=== PATIENT | female | born 1950 | race Two or more races ===

== ENCOUNTER 2017-07-01 14:40 | Emergency (ER) | payer MEDICARE, MEDICAID ==
--- NOTE | 2017-07-01 15:30 | RAD ---
Indication: Chest pain. Single frontal view of the chest performed at 1515 hours was reviewed. Comparison is made with previous exam dated February 19, 2016. No mediastinal shift is noted. Heart is of normal size and configuration. Lung martell appear clear. IMPRESSION: NO ACTIVE CARDIOPULMONARY DISEASE IS NOTED.
[2017-07-01 16:45] LABS: ABS Basophils 0 10^3/ul (0-0.2); ABS Eosinophils 0.1 10^3/ul (0-0.6); ABS Lymphocytes 2.6 10^3/ul (1.0-4.8); ABS Monocytes 0.5 10^3/ul (0-0.8); ABS Neutrophils 3.2 10^3/ul (1.5-7.7); ABS Nucleated RBC 0 10^3/ul; Eosinophil % 1.1 % (0-6); Hematocrit 41 % (35-47); Hemoglobin 13.8 g/dl (12.0-16.0); Lymphocyte % 40.9 % (25-47); Mean Corpuscular HGB Conc 34 g/dl (31-36); Mean Corpuscular Hemoglobin 29 pg (27-31); Mean Corpuscular Volume 86 fL (80-97); Nucleated Red Blood Cells % 0; Platelet Count 222 10^3/ul (150-450); Red Cell Distribution Width 15 % (10.5-15); White Blood Count 6.4 10^3/ul (3.5-10.8)
[2017-07-01 16:53] LABS: INR 0.94 (0.77-1.02)
[2017-07-01 17:04] LABS: EGFR Non-African American 73.7 (>60)
[2017-07-01] MEDS ORDERED: Iohexol 350* (CONTRAST) 500 ML MDV IV ONE (17:22)
--- NOTE | 2017-07-01 18:10 | RAD ---
INDICATION: Chest pain. COMPARISON: Comparison is made with a prior chest x-ray study from July 01, 2017. TECHNIQUE: A CT angiogram of the chest was performed with intravenous following intravenous injection of 84 ml of Omnipaque 350 nonionic contrast. Contiguous axial sections were obtained from the lung apices through the lung bases. Images were reconstructed in the coronal and sagittal planes. The exam is limited due to slight motion artifact and the patient's body habitus. FINDINGS: There is relatively homogeneous opacification of the pulmonary arteries. No intraluminal filling defect or pulmonary embolism is seen. The heart is within normal limits in size. No pericardial effusion is present. The thoracic aorta is normal in caliber and demonstrates homogeneous contrast opacification. No significant enlarged mediastinal or hilar lymph nodes are seen. There is a small hiatal hernia. There is a 6 mm nodular density present in the right lower lobe best visualized on axial image #24 the lungs are otherwise clear. No pleural effusion or pneumothorax is seen. No significant focal osseous abnormality is seen. IMPRESSION: 1. LIMITED EXAM, NO EVIDENCE FOR PULMONARY EMBOLISM. 2. 6 MM RIGHT LOWER LOBE PULMONARY NODULE, RECOMMEND A FOLLOW-UP CT OF THE CHEST IN 6 MONTHS TIME. 3. SMALL HIATAL HERNIA.
[2017-07-01 19:10] VITALS: BP 119/72
--- NOTE | 2017-07-01 21:13 | ED ---
Betsy Greer Gabriel, scribed for Wyatt Chavez MD on 07/01/17 at 1543 . Shortness of Breath - HPI Summary HPI Summary: This patient is a 66 year old F presenting to [facility] accompanied by her family with a chief complaint of SOB that began 2 days ago. The patient rates the pain 7/10 in severity. Patient reports back pain, cough, rib pain, and LE edema. Two weeks ago patient just returned from [place] trip. She also c/o of left shoulder pain that she believes developed due to her using her left hand more which she has needed to do due to a right hand injury. - History of Current Complaint Chief Complaint: EDShortnessOfBreath Time Seen by Provider: 07/01/17 14:52 Hx Obtained From: Patient Onset/Duration: Lasting Days - 2, Still Present Timing: Constant Current Severity: Mild Associated Signs & Symptoms: Cough (Nonproductive), Edema - Allergy/Home Medications Allergies/Adverse Reactions: Allergies Allergy/AdvReac Type Severity Reaction Status Date / Time Adhesive Tape Allergy REDDENED, Verified 02/25/16 06:42 SKIN IRRITATION MS Latex [Latex] Allergy BURNING Verified 02/25/16 06:42 Home Medications: Home Medications Cholecalciferol TAB* [Vitamin D TAB*] 1,000 unit PO DAILY 07/01/17 [History Confirmed 07/01/17] Flaxseed Oil [Flaxseed Oil] 1,000 mg PO DAILY 07/01/17 [History Confirmed ] Ibuprofen TAB* [Motrin TAB* 600 MG] 600 mg PO Q6H PRN 07/01/17 [History Confirmed 07/01/17] Iron [Iron] 90 mg PO DAILY 07/01/17 [History Confirmed 07/01/17] Multivitamins/Minerals TAB* [Theragran/minerals TAB*] 1 tab PO DAILY 07/01/17 [ History Confirmed 07/01/17] [place]yers-3 Fatty Acids (Nf) [Fish Oil (NF)] 1,000 mg PO DAILY 07/01/17 [History Confirmed 07/01/17] Vitamin B Complex CAP* [B Complex CAP*] 1 cap PO DAILY 07/01/17 [History Confirmed 07/01/17] PMH/Surg Hx/FS Hx/Imm Hx Endocrine/Hematology History: Denies: Hx Diabetes Cardiovascular History: Denies: Hx Hypertension, Hx Pacemaker/ICD Respiratory History: Denies: Hx Chronic Obstructive Pulmonary Disease (COPD) History: Denies: Hx Renal Disease Musculoskeletal History: Reports: Hx Arthritis - KNEES, Hx Tendonitis - RIGHT FOOT, Other Musculoskeletal History - LEFT KNEE/ SWELLING TO BOTH FEET LEFT GREATER THAN RIGHT Sensory History: Reports: Hx Cataracts, Hx Contacts or Glasses - GLASSES Denies: Hx Hearing Aid Opthamlomology History: Reports: Hx Cataracts, Hx Contacts or Glasses - GLASSES Psychiatric History: Denies: Hx Panic Disorder - Cancer History Cancer Type, 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 SURGERY 11-21. 12/2014 - LT KNEE REPLACEMENT Hx Anesthesia Reactions: No Infectious Disease History: No Infectious Disease History: Reports: Traveled Outside the [place] in Last 30 Days - Family History Known Family History: Positive: Hypertension - Social History Lives: With Family Alcohol Use: None Substance Use Type: Reports: None Smoking Status (MU): Never Smoked Tobacco Have You Smoked in the Last Year: No Review of Systems Positive: Shortness Of Breath Positive: Edema, Other - back pain, rib pain, and left shoulder pain All Other Systems Reviewed And Are Negative: Yes Physical Exam - Summary Physical Exam Summary: Appearance: The patient is well-nourished in no acute distress and in no acute pain. Skin: The skin is warm and dry and skin color reflects adequate perfusion. HEENT: The head is normocephalic and atraumatic. The pupils are equal and reactive. The conjunctivae are clear and without drainage. Nares are patent and without drainage. Mouth reveals moist mucous membranes and the throat is without erythema and exudate. The external ears are intact. The ear canals are patent and without drainage. The tympanic membranes are intact. Neck: the neck is supple with full range of motion and non-tender. There are no carotid bruits. There is no neck vein distension. Respiratory: Chest is non-tender. Diminshed breath sounds Cardiovascular: Heart is regular rate and rhythm. There is no murmur or rub auscultated. There is slight peripheral edema and pulses are symmetrical and equal. Abdomen: The abdomen is soft and non-tender. There are normal bowel sounds heard in all four quadrants and there is no organomegaly palpated. Musculoskeletal: There is no back tenderness noted. Extremities are non-tender with full range of motion. There is good capillary refill. There is slight peripheral edema no calf tenderness Neurological: Patient is alert and oriented to person, place and time. The patient has symmetrical motor strength in all four extremities. Cranial nerves are grossly intact. Deep tendon reflexes are symmetrical and equal in all four extremities. Psychiatric: The patient has an appropriate affect and does not exhibit any anxiety or depression. Triage Information Reviewed: Yes Vital Signs On Initial Exam: Initial Vitals Temp Pulse Resp BP Pulse Ox 97.2 F 72 20 125/76 97 07/01/17 14:43 07/01/17 14:43 07/01/17 14:43 07/01/17 14:43 07/01/17 14:43 Vital Signs Reviewed: Yes Diagnostics - Vital Signs Vital Signs Temp Pulse Resp BP Pulse Ox 07/01/17 14:43 97.2 F 72 20 125/76 97 - Laboratory Lab Results: Lab Results 07/01/17 07/01/17 07/01/17 Range/Units 16:30 16:30 16:30 WBC 6.4 (3.5-10.8) 10^3/ul RBC 4.80 (4.0-5.4) 10^6/ul Hgb 13.8 (12.0-16.0) g/dl Hct 41 (35-47) % MCV 86 (80-97) fL MCH 29 (27-31) pg MCHC 34 (31-36) g/dl RDW 15 (10.5-15) % Plt Count 222 (150-450) 10^3/ul MPV 8.0 (7.4-10.4) um3 Neut % (Auto) 49.8 (38-83) % Lymph % (Auto) 40.9 (25-47) % [place] % (Auto) 7.6 H (0-7) % Eos % (Auto) 1.1 (0-6) % Baso % (Auto) 0.6 (0-2) % Absolute Neuts (auto) 3.2 (1.5-7.7) 10^3/ul Absolute Lymphs (auto) 2.6 (1.0-4.8) 10^3/ul Absolute Monos (auto) 0.5 (0-0.8) 10^3/ul Absolute Eos (auto) 0.1 (0-0.6) 10^3/ul Absolute Basos (auto) 0 (0-0.2) 10^3/ul Absolute Nucleated RBC 0 10^3/ul Nucleated RBC % 0 INR (Anticoag Therapy) (0.77-1.02) D-Dimer, Quantitative (Less Than 230) ng/mL Sodium 136 L (139-145) mmol/L Potassium 4.4 (3.5-5.0) mmol/L Chloride 102 (101-111) mmol/L Carbon Dioxide 29 (22-32) mmol/L Anion Gap 5 (2-11) mmol/L BUN 17 (6-24) mg/dL Creatinine 0.78 (0.51-0.95) mg/dL Est GFR ( Amer) 94.7 (>60) Est GFR (Non-Af Amer) 73.7 (>60) BUN/Creatinine Ratio 21.8 H (8-20) Glucose 100 (70-100) mg/dL Lactic Acid (0.5-2.0) mmol/L Calcium 10.3 (8.6-10.3) mg/dL Total Bilirubin 0.40 (0.2-1.0) mg/dL AST 16 (13-39) U/L ALT 19 (7-52) U/L Alkaline Phosphatase 70 (34-104) U/L Troponin I 0.00 (<0.04) ng/mL B-Natriuretic Peptide 23 ( - 100) pg/mL Total Protein 6.5 (6.4-8.9) g/dL Albumin 3.6 (3.2-5.2) g/dL Globulin 2.9 (2-4) g/dL Albumin/Globulin Ratio 1.2 (1-3) 07/01/17 07/01/17 07/01/17 Range/Units 16:30 16:30 18:03 WBC (3.5-10.8) 10^3/ul RBC (4.0-5.4) 10^6/ul Hgb (12.0-16.0) g/dl Hct (35-47) % MCV (80-97) fL MCH (27-31) pg MCHC (31-36) g/dl RDW (10.5-15) % Plt Count (150-450) 10^3/ul MPV (7.4-10.4) um3 Neut % (Auto) (38-83) % Lymph % (Auto) (25-47) % [place] % (Auto) (0-7) % Eos % (Auto) (0-6) % Baso % (Auto) (0-2) % Absolute Neuts (auto) (1.5-7.7) 10^3/ul Absolute Lymphs (auto) (1.0-4.8) 10^3/ul Absolute Monos (auto) (0-0.8) 10^3/ul Absolute Eos (auto) (0-0.6) 10^3/ul Absolute Basos (auto) (0-0.2) 10^3/ul Absolute Nucleated RBC 10^3/ul Nucleated RBC % INR (Anticoag Therapy) 0.94 (0.77-1.02) D-Dimer, Quantitative 333 H (Less Than 230) ng/mL Sodium (139-145) mmol/L Potassium (3.5-5.0) mmol/L Chloride (101-111) mmol/L Carbon Dioxide (22-32) mmol/L Anion Gap (2-11) mmol/L BUN (6-24) mg/dL Creatinine (0.51-0.95) mg/dL Est GFR ( Amer) (>60) Est GFR (Non-Af Amer) (>60) BUN/Creatinine Ratio (8-20) Glucose (70-100) mg/dL Lactic Acid 0.8 (0.5-2.0) mmol/L Calcium (8.6-10.3) mg/dL Total Bilirubin (0.2-1.0) mg/dL AST (13-39) U/L ALT (7-52) U/L Alkaline Phosphatase (34-104) U/L Troponin I 0.00 (<0.04) ng/mL B-Natriuretic Peptide ( - 100) pg/mL Total Protein (6.4-8.9) g/dL Albumin (3.2-5.2) g/dL Globulin (2-4) g/dL Albumin/Globulin Ratio (1-3) Result Diagrams: 07/01/17 16:30 07/01/17 16:30 Lab Statement: Any lab studies that have been ordered have been reviewed, and results considered in the medical decision making process. - Radiology CXR Radiology Interpretation Completed By: Radiologist - no active cardiopulmonary disease is noted ED physician has reviewed this radiology report. - CT CTA Chest CT Interpretation Completed By: Radiologist - 1. LIMITED EXAM, NO EVIDENCE FOR PULMONARY EMBOLISM. 2. 6 MM RIGHT LOWER LOBE PULMONARY NODULE, RECOMMEND A FOLLOW-UP CT OF THE CHEST IN 6 MONTHS TIME. 3. SMALL HIATAL HERNIA. Dr. Chavez has reviewed this report - EKG 14:43 Cardiac Rate: NL EKG Rhythm: Sinus Rhythm - at 63 BPM EKG Interpretation: no acute ST/T wave changes Course/Dx - Course Course Of Treatment: Ms. Swift presented with a nonproductive cough for a couple days with increasing left chest pain especially with deep breath or cough. She has travelled recently. He exam was unremarkable. She R/O for PE after a CTA was negative and for IA after two troponins. - Diagnoses Provider Diagnoses: Chest pain Discharge - Sign-Out/Discharge Documenting (check all that apply): Discharge - Discharge Plan Condition: Stable Disposition: HOME Prescriptions: traMADol TAB* [Ultram*] 50 mg PO Q6HR PRN #20 tab MDD 4 PRN Reason: Pain Patient Education Materials: Chest Pain (ED) Referrals: Raine De Leon MD [Medical Doctor] - 2 Days Additional Instructions: RETURN TO THE EMERGENCY DEPARTMENT FOR CHANGING OR WORSENING SYMPTOMS - Billing Disposition and Condition Condition: STABLE Disposition: HOME The documentation as recorded by the Betsy stanley Gabriel accurately reflects the service I personally performed and the decisions made by Scott monk Richard L, MD.
== END 2017-07-01 19:09 | disposition home or self-care (01) ==
LOC: ED 14:40
DX: R07.89 Other chest pain (principal); R05 Cough; R60.9 Edema, unspecified; R91.1 Solitary pulmonary nodule; K44.9 Diaphragmatic hernia without obstruction or gangrene; M25.512 Pain in left shoulder; Z86.011 Personal history of benign neoplasm of the brain; Z91.040 Latex allergy status; Z91.048 Other nonmedicinal substance allergy status; Z96.652 Presence of left artificial knee joint
CPT/HCPCS: 36415; 71045; 71275; 80053; 83605; 83880; 84484; 85025; 85379; 85610; 93005; 99284; Q9967

== ENCOUNTER 2018-10-07 15:33 | Emergency (ER) | payer MEDICARE, MEDICAID ==
[2018-10-07 15:51] VITALS: BP 125/74
--- NOTE | 2018-10-07 16:24 | UC ---
Lower Extremity/Ankle HPI - HPI Summary HPI Summary: 68-year-old female who complained of sharp right calf pain the past 2 nights. She's had no recent surgery, she does not take estrogen, she is a nonsmoker, she said a couple months ago she did have an air flight approximately 11 hours she was in the air however she's had no difficulty until the past few days when she did a little more excessive walking been normal and then had the sharp pain in her right Past 2 nights. She denies any chest pain or difficulty breathing. - History of Current Complaint Chief Complaint: UCLowerExtremity Stated Complaint: LEG PAIN Time Seen by Provider: 10/07/18 16:07 Hx Obtained From: Patient ?: No Onset/Duration: Gradual Onset Severity Initially: Mild Severity Currently: None Pain Intensity: 2 Aggravating Factor(s): Other - She has a sharp pain mostly at night in her right calf. Alleviating Factor(s): Rest Able to Bear Weight: Yes - Allergies/Home Medications Allergies/Adverse Reactions: Allergies Allergy/AdvReac Type Severity Reaction Status Date / Time Adhesive Tape Allergy REDDENED, Verified 10/07/18 15:51 SKIN IRRITATION latex Allergy burning Verified 10/07/18 15:51 Home Medications: Home Medications Aspirin 325 mg PO DAILY 10/07/18 [History Confirmed 10/07/18] PMH/Surg Hx/FS Hx/Imm Hx Previously Healthy: Yes Cancer History: Other - Meningioma in 2007. - Surgical History Surgical History: Yes Surgery Procedure, Year, and Place: C-SECTIONS X4,HERNIA X3, LT KNEE ARTHROSCOPY ,RT CARPAL TUNNEL 12/15,LASIK 1999(?), CRANIOTOMY 11/20 FOR MENINGIOMA RESECTION - [facility], [facility] SURGERY 12/2014 - LT KNEE REPLACEMENT - Family History Known Family History: Positive: Hypertension - Social History Alcohol Use: None Substance Use Type: None Smoking Status (MU): Never Smoked Tobacco Have You Smoked in the Last Year: No - Immunization History Most Recent Influenza Vaccination: 2014 Most Recent Tetanus Shot: UNKNOWN Most Recent Pneumonia Vaccination: HAS NOT HAD Review of Systems All Other Systems Reviewed And Are Negative: Yes Motor: Positive: Negative Neurovascular: Positive: Negative Musculoskeletal: Positive: Negative, Calf Tenderness - Sharp pain right calf the past 2 nights. Presently she is pain-free. Is Patient Immunocompromised?: No Physical Exam Triage Information Reviewed: Yes Appearance: Well-Appearing, No Pain Distress, Well-Nourished Vital Signs: Initial Vital Signs Temp 98 F 10/07/18 15:44 Pulse 63 10/07/18 15:44 Resp 12 10/07/18 15:44 BP 125/74 10/07/18 15:44 Pulse Ox 97 10/07/18 15:44 Vital Signs Reviewed: Yes Musculoskeletal: Positive: Strength Intact, ROM Intact, No Edema, Other: - Good peripheral pulses neuro sensation and capillary refill. Skin is the same temperature compared to the other leg. Right calf is nontender presently. No swelling or bruising or erythema noted. Neurological: Positive: Alert, Muscle Tone Normal Psychological Exam: Normal Skin Exam: Normal Lower Extremity Course/Dx - Course Course Of Treatment: Venous Doppler right leg:negative for DVT. I believe this is more of a muscle strain associated with excessive walking that she did in shoes that were new and uncomfortable for her. She can apply heat to the sore area, warm moist compresses, take Motrin every 8 hours with pain and follow-up with her primary care provider if no improvement in 3 or 4 days. - Differential Dx/Diagnosis Provider Diagnosis: Pain in right lower leg Discharge - Sign-Out/Discharge Documenting (check all that apply): Patient Departure All imaging exams completed and their final reports reviewed: Yes - Discharge Plan Condition: Fair Disposition: HOME Patient Education Materials: Muscle Strain (DC) Referrals: Cherise Swartz MD [Primary Care Provider] - Additional Instructions: You may apply heat to the sore area. Avoid movements that cause pain. Follow- up with your primary care provider if no improvement in 3 or 4 days. You may take Motrin every 8 hours with food for pain. - Billing Disposition and Condition Condition: FAIR Disposition: Home - Attestation Statements Provider Attestation: Per institutional requirements, I have reviewed the chart, however, I was not consulted specifically or made aware of this patient by the midlevel provider. I did not personally evaluate, interact with , or disposition this patient.
== END 2018-10-07 17:45 | disposition home or self-care (01) ==
LOC: UCEAST 15:33
DX: M79.661 Pain in right lower leg (principal); Z91.040 Latex allergy status; Z79.82 Long term (current) use of aspirin
CPT/HCPCS: 99211; G0463

== ENCOUNTER 2019-01-06 13:46 | Emergency (ER) | payer MEDICARE, MEDICAID ==
--- OUTSIDE RECORDS SUMMARY | 2019-01-06 13:55 | XMS REPORT | Summary of Care ---
:1950 Author Organization [facility] Address [address] [address] Care Team Providers Name Role Phone Cherise Swartz Primary Care Provider Reason for Referral Refer to Department Only (Routine) Status Reason Specialty Diagnoses / Referred By Referred To Procedures Contact Contact Pending Review Physical Therapy Diagnoses Nocturia Cherise Swartz MD [address] [place] [address] Reason for Visit Reason Comments Physical pap 01/15/17, mammo 10/11/18, Dexa 12/11/15, Colonoscopy 08/02/18 Sleep Problem waking up throughout the night Back Pain mid back pain at night only Encounter Details Date Type Department Care Team Description 12/28/2018 Office Visit [facility] Cherise Swartz, Pulmonary nodule, right (Primary Dx); Medicine MD [place]; [address] [place] [address] Primary hyperparathyroidism (HCC); [place], [place] [id number] [place] [address] Elevated blood sugar; [phone] [address] Nocturia [phone] Allergies Active Allergy Reactions Severity Noted Date Comments Tegaderm Hives 01/28/2016 documented as of this encounter (statuses as of 12/28/2018) Medications Medication Sig Dispensed Refills Start Date End Date Status Multiple Vitamin Take by mouth 0 Active (MULTI-VITAMINS PO) DAILY. New Point-3 Fatty Acids Take by mouth 0 Active (FISH OIL PO) DAILY. COMBIGAN 0.2-0.5 % 0 04/28/2016 Active Ophthalmic Solution Diphenhydramine-APAP, Take by mouth 0 Active sleep, (TYLENOL PM EVERY BEDTIME. EXTRA STRENGTH) 25-500 MG Oral Tab ibuprofen (MOTRIN) 600 Take 1 Tab by 100 Tab 1 02/26/2017 Active MG Oral Tab mouth EVERY SIX HOURS NEEDED for Pain. documented as of this encounter (statuses as of 12/28/2018) Active Problems Problem Noted Date Hyperplastic polyp of descending colon 07/07/2018 Adenomatous polyp of descending colon 07/07/2018 Primary hyperparathyroidism 06/10/2018 Visit for screening mammogram 06/10/2018 Acute narcotic withdrawal 08/28/2017 Pulmonary nodule, right 07/07/2017 Overview: 6mm- lung nodule - 06/30 - Repeat in 6 months- 12/01 - no change repeat in 2 years suggested- ( 2020) Restless leg syndrome 03/12/2015 Status post total left knee replacement 02/20/2015 Primary osteoarthritis of both knees 11/12/2014 DJD (degenerative joint disease) of knee 07/05/2014 Meningioma 07/25/2013 Overview: resected and treated at [facility] 2007 BMI 40.0-44.9, adult 09/23/2011 Overview: sustained wt reduction with portion control and sustained routine exercise. Set realistic goal of 1# wt reduction /week set 10 week goals. Herniated nucleus pulposus, L4-5 left 11/26/2008 documented as of this encounter (statuses as of 12/28/2018) Resolved Problems Problem Noted Date Resolved Date History of total left knee replacement 04/23/2015 08/27/2017 Primary osteoarthritis of left knee 12/31/2014 08/27/2017 Knee pain, bilateral 06/18/2014 08/27/2017 Osteoarthritis of Knee 09/14/2007 08/27/2017 documented as of this encounter (statuses as of 12/28/2018) Immunizations Name Administration Dates Next Due Depo Medrol (40mg) 11/15/2013 Depo Medrol (80mg) 07/02/2015 Euflexxa (2ml) 06/27/2014 Euflexxa (4ml) 07/10/2014, 07/05/2014 Hepatitis A Vaccine-Adult 05/28/2010 Influenza (IM) Preservative Free 01/05/2014, 01/22/2010, 12/17/2008, 12/26/2007 Influenza Vaccine High Dose 11/19/2015 MENINGOCOCCAL CONJUGATE VACCINE 06/20/2009 PNEUMOCOCCAL POLYSACCHARIDE VACCINE 02/04/2018 Pneumococcal Conjugate(13 Valent) 12/11/2015 documented as of this encounter Social History Tobacco Use Types Packs/Day Years Used Date Never Smoker Smokeless Tobacco: Never Used Alcohol Use Drinks/Week oz/Week Comments No Sex Assigned at Date Recorded Not on file Job Start Date Occupation Industry Not on file Not on file Not on file Travel History Travel Start Travel End No recent travel history available. documented as of this encounter Last Filed Vital Signs Vital Sign Reading Time Taken Comments Blood Pressure 124/70 12/28/2018 2:40 PM EDT Pulse 59 12/28/2018 2:40 PM EDT Temperature - - Respiratory Rate - - Oxygen Saturation 97% 12/28/2018 2:40 PM EDT Inhaled Oxygen Concentration - - Weight 110.1 kg (242 lb 12.8 oz) 12/28/2018 2:40 PM EDT Height 162.6 cm (5' 4") 12/28/2018 2:40 PM EDT Body Mass Index 41.68 12/28/2018 2:40 PM EDT documented in this encounter Patient Instructions Patient InstructionsCreCherise kearney MD - 12/28/2018 2:40 PM EDTPLAN dont Drink before bed- documented in this encounter Progress Notes Cherise Swartz MD - 12/28/2018 2:40 PM EDT NAME:Judi Swift 1950: 1950 [place] Date: 12/28/2018 CC: Chief Complaint Patient presents with Physical pap 01/15/17, mammo 10/11/18, Dexa 12/11/15, Colonoscopy 08/02/18 Sleep Problem waking up throughout the night Back Pain mid back pain at night only Judi Swift is a 68-y.o. female about to go to [place] to be with her daughter ( professor at [employer])who is about to have a back to baby. 1. Repeat ct scan for 6 mm lung nodule - no change - repeat in 2 years suggested - 2. Urinary frequency - Gets up every 1-2 hours - gets up because has to go to the bathroom - and does not fall asleep again- trial Of oxybutynin - After 3 days stopped - Discussed options- Since travelling decided that referral to Physical Therapy most useful at this time - 3. Review of blood work- Blood sugar is borderline - Cholesterol is ok 4. Primary hyperparathyroid - Serum calcium still mildly eleated Urine calcium low as time checked Plan to check again and consider repeat dxa Current Outpatient Medications Medication Sig COMBIGAN 0.2-0.5 % Ophthalmic Solution Diphenhydramine-APAP, sleep, (TYLENOL PM EXTRA STRENGTH) 25-500 MG Oral Tab Take by mouth EVERY BEDTIME. ibuprofen (MOTRIN) 600 MG Oral Tab Take 1 Tab by mouth EVERY SIX HOURS NEEDED for Pain. Multiple Vitamin (MULTI-VITAMINS PO) Take by mouth DAILY. New Point-3 Fatty Acids (FISH OIL PO) Take by mouth DAILY. No current facility-administered medications for this visit. Patient Active Problem List Diagnosis Date Noted Hyperplastic polyp of descending colon 07/07/2018 Adenomatous polyp of descending colon 07/07/2018 Primary hyperparathyroidism (HCC) 06/10/2018 Visit for screening mammogram 06/10/2018 Acute narcotic withdrawal (HCC) 08/28/2017 Pulmonary nodule, right 07/07/2017 6mm- lung nodule - 06/30 - Repeat in 6 months- 12/01 - no change repeat in 2 years suggested- (2020) Restless leg syndrome 03/12/2015 Status post total left knee replacement 02/20/2015 Primary osteoarthritis of both knees 11/12/2014 DJD (degenerative joint disease) of knee 07/05/2014 Meningioma ([facility]) 07/25/2013 resected and treated at [facility] 2008 BMI 40.0-44.9, adult ([facility]) 09/23/2011 sustained wt reduction with portion control and sustained routine exercise. Set realistic goal of 1# wt reduction /week set 10 week goals. Herniated nucleus pulposus, L4-5 left 11/26/2008 Family History Problem Relation Age of Onset Diabetes Mother Hypertension Mother Breast Cancer Other No cardiopulmonary symptoms No upper or lower GI complaints No urinary tract symptoms. No bruising/ bleeding. No neurological complaints . No insomnia.+ . Social History Tobacco Use Smoking status: Never Smoker Smokeless tobacco: Never Used Substance Use Topics Alcohol use: No Drug use: No Results for orders placed or performed in visit on 12/23/18 LIPID PROFILE Result Value Ref Range Cholesterol 176 <200 mg/dl HDL Cholesterol 49 (L) >50 mg/dl Triglycerides 75 <150 mg/dl LDL Cholesterol 112 (H) <100 MG/DL Cholesterol / HDL Ratio 3.6 RATIO LDL / HDL Ratio 2.3 Non-HDL Cholesterol 127 0 - 130 MG/DL COMPREHENSIVE METABOLIC PANEL Result Value Ref Range Sodium 136 134 - 145 mmol/L Potassium 4.2 3.5 - 5.1 mmol/L Chloride 106 98 - 107 mmol/L CO2 26 22 - 30 mmol/L Calcium 10.5 (H) 8.3 - 10.1 mg/dl Albumin 3.7 3.5 - 5.0 g/dl BUN 15 7 - 17 mg/dl Creatinine 0.7 0.7 - 1.2 mg/dl Glucose 106 (H) 70 - 99 mg/dl Total Protein 6.8 6.3 - 8.2 g/dl Total Bilirubin 0.5 0.0 - 1.1 MG/DL AST 28 15 - 46 U/L ALT 32 9 - 52 U/L Alkaline Phosphatase 84 40 - 150 U/L eGFR >60 See Interpretation Below ml/min/1.73ml Sq BUN/Creatinine Ratio 21 6 - 22 RATIO Anion Gap 4 3 - 11 mmol/L A/G Ratio 1.2 0.8 - 2.0 ratio CBC WITH DIFFERENTIAL Result Value Ref Range WBC Count 5.55 3.98 - 10.04 K/uL RBC Count 4.88 3.93 - 5.22 M/UL Hemoglobin 13.7 11.2 - 15.7 g/dL Hematocrit 43.3 34.1 - 44.9 % MCV 88.7 79.4 - 94.8 FL MCH 28.1 25.6 - 32.2 PG MCHC 31.6 (L) 32.2 - 35.5 g/dL Platelet Count 232 182 - 369 K/uL MPV 11.0 9.4 - 12.3 FL RDW 14.6 (H) 11.7 - 14.4 % Neutrophil % 41.7 34.0 - 71.1 % Lymphocyte % 48.3 19.3 - 51.7 % Monocyte % 7.9 4.7 - 12.5 % Eosinophil % 1.4 0.7 - 5.8 % Basophil % 0.5 0.1 - 1.2 % nRBC % 0.0 0.0 - 0.2 % Neutrophil # 2.31 1.56 - 6.13 K/UL Lymphocyte # 2.68 1.18 - 3.74 K/UL Monocyte # 0.44 0.24 - 0.86 K/UL Eosinophil # 0.08 0.04 - 0.36 K/UL Basophil # 0.03 0.01 - 0.08 K/UL Immature Gran % 0.2 0.0 - 0.4 % Immature Gran # 0.01 0.00 - 0.03 K/uL NRBC # 0.00 0.00 - 0.12 K/uL GLYCOHEMOGLOBIN A1C Result Value Ref Range Glycohemoglobin A1C 6.1 (H) <=5.6 % OBJECTIVE: BP 124/70 | Pulse 59 | Ht 5' 4" (1.626 m) | Wt 242 lb 12.8 oz (110.1 kg) | SpO2 97% | BMI 41.68kg/m . Heent neg Neck no JVD, thyromegaly or bruit Lungs Clear CV rrr Abd soft, nontender, no organomegaly Ext no edema; no lesions; pulses intact Neuro: intellect intact ; motor including gait unremarkable A/P ICD-9-CM ICD-10-CM 1. Pulmonary nodule, right 793.11 R91.1 2. E[place]se 706.2 L72.0 3. Primary hyperparathyroidism (HCC) 252.01 E21.0 4. Elevated blood sugar 790.29 R73.9 5. Nocturia 788.43 R35.1 REFER TO PHYSICAL THERAPY / REHAB Patient Instructions PLAN dont Drink before bed- AUTHOR: Cherise Swartz MD 15:34 12/28/2018 documented in this encounter Plan of Treatment Name Type Priority Associated Diagnoses Order Schedule CALCIUM, 24 HOUR Lab Routine Primary hyperparathyroidism 1 Occurrences starting URINE (HCC) 12/28/2018 until 06/26/2019 Name Type Priority Associated Diagnoses Order Schedule REFER TO PHYSICAL Referral Routine Nocturia 99 Occurrences starting THERAPY / REHAB 12/28/2018 until 12/29/2019 Health Maintenance Due Date Last Done Comments ZOSTER IMMUNIZATION SERIES 10/05/1999 (1 of 2) MEDICARE ANNUAL WELLNESS 11/18/2016 11/19/2015, 11/19/2015 VISIT COLONOSCOPY SCREENING 04/24/2018 04/24/2013, 03/26/2008, 03/26/2008 DEPRESSION SCREENING 10/12/2019 10/11/2018 FALL RISK ASSESSMENT 10/12/2019 10/11/2018, 10/11/2018 DIABETES SCREENING 12/24/2019 12/23/2018, 12/23/2018, 02/16/2018, Additional history exists LIPID DISORDER SCREENING 12/24/2023 12/23/2018, 01/20/2017, 01/09/2014, Additional history exists OSTEOPOROSIS SCREENING 12/10/2025 12/11/2015 MENINGOCOCCAL VACCINE IMM Aged Out 06/20/2009 No longer eligible based on patient's age to complete this topic PNEUMOCOCCAL 65+YRS Completed 02/04/2018, 12/11/2015 HPV IMMUNIZATION SERIES Aged Out No longer eligible based on patient's age to complete this topic documented as of this encounter Goals Goal Patient Goal Associated Recent Patient-Stated? Author Type Problems Progress Depression Depression No merrill De (PHQ-9) Larisa total score < 5 Note: This is an individualized treatment (depression) goal for Judi A Hadi: Displayed above is your goal for a depression screening (PHQ-9) score that would indicate good control of your depression. Keep a regular sleep schedule Lifestyle No Larisa De MD Note: This is an individualized lifestyle goal for Judi A Hadi: Please maintain a regular sleep schedule. This may help with some symptoms of depression. Take all prescribed medications as Self-management No Larisa De MD directed Note: This is an individualized self-management goal for Judi A Hadi: Please take all prescribed medications as directed. 1. Do not skip doses. If you cannot afford your medications, talk with your doctor. 2. Use a pill reminder system such as a pill box if needed. Your pharmacist can help you with this. 3. Contact your Pharmacy 5 days before your medication runs out. If you cannot take your medications for any reasons, talk with your doctor. 4. Please bring all of your medication bottles and inhalers (or a list of all your medications/inhalers) with you to every visit. Potential barriers to meeting all of your care plan goals will continue to be addressed on an ongoing basis. documented as of this encounter Implants Implanted Type Area Strand Forming Machine Operator Device Shelf Model / Identifier Expiration Date Serial / Lot Bone Cement, 40gm Full Dose - [id number] Left: DEPUY 08/08/2015 [id number] / Implanted: Qty: 1 on 01/07/2015 by Herbert Estrada MD at [facility] Knee / [id number] Gentamicin Bone Cement Left: DEPUY 05/10/2016 / Implanted: Qty: 1 on 01/07/2015 by Herbert Estrada MD at [facility] Knee / [id number] Cruciate Retaining Femoral Left: HIEN, CARLENE. 11/12/2017 [id number] / Implanted: Qty: 1 on 01/07/2015 by Herbert Estrada MD at [facility] Knee / EECAN Primary Tibial Baseplate Left: HIEN, CARLENE. 08/11/2018 [id number] / Implanted: Qty: 1 on 01/07/2015 by Herbert Estrada MD at [facility] Knee / KKTDD Symmetric Patella Left: 03/14/2019 [id number]-G-[id number] / Implanted: Qty: 1 on 01/07/2015 by Herbert Estrada MD at [facility] Knee / AOPR Tibial Bearing Insert-Cs Left: 05/12/2016 [id number] / Implanted: Qty: 1 on 01/07/2015 by Herbert Estrada MD at [facility] Knee / [id number] documented as of this encounter Results Not on filedocumented in this encounter Visit Diagnoses Diagnosis Pulmonary nodule, right - Primary Solitary pulmonary nodule Elyse Sebaceous cyst Primary hyperparathyroidism (HCC) Primary hyperparathyroidism Elevated blood sugar Other abnormal glucose Nocturia documented in this encounter Insurance Payer Benefit Plan / Subscriber ID Effective Dates Phone Address Type Group [facility] xxxxxxxxx 2017-Presen Medicare TODAYS OPTIONS TODAYS OPTIONS t Advantage MEDICAID [facility] xxxxxxxx 2016-Presen Medicaid [place] MEDICAID t (Home) [address] [phone] [place], [place] (Work) [id number] documented as of this encounter
--- OUTSIDE RECORDS SUMMARY | 2019-01-06 13:55 | XMS REPORT | Summary of Care ---
:1950 Author Organization [facility] Address [address] [facility] [place] [address] Care Team Providers Name Role Phone Cherise Swartz Primary Care Provider Reason for Visit Reason Comments Follow Up Excision of scalp cyst Today Encounter Details Date Type Department Care Team Description 12/16/2018 Office Visit [place] Hayden Guerra MD Scalp cyst (Primary Surgery 1 [facility] Dx) [address] [facility] [address] [address] [place] [address] Allergies Active Allergy Reactions Severity Noted Date Comments Tegaderm Hives 01/28/2016 documented as of this encounter (statuses as of 12/16/2018) Medications Medication Sig Dispensed Refills Start Date End Date Status Multiple Vitamin Take by mouth 0 Active (MULTI-VITAMINS PO) DAILY. Hilger-3 Fatty Acids Take by mouth 0 Active [...] as of this encounter (statuses as of 12/16/2018) Active Problems Problem Noted Date Hyperplastic polyp of descending colon 07/07/2018 Adenomatous polyp of descending colon 07/07/2018 Primary hyperparathyroidism 06/10/2018 Visit for screening mammogram 06/10/2018 Acute narcotic withdrawal 08/28/2017 Pulmonary nodule, right 07/07/2017 Overview: 6mm- lung nodule - 06/30 - Repeat in 6 months- Restless leg syndrome 03/12/2015 Status post total left knee replacement 02/20/2015 Primary osteoarthritis of both knees 11/12/2014 DJD (degenerative joint disease) of knee 07/05/2014 Meningioma 07/25/2013 Overview: resected and treated at [facility] 2007 BMI 40.0-44.9, adult 09/23/2011 Overview: sustained wt reduction with portion control and sustained routine exercise. Set realistic goal of 1# wt reduction /week set 10 week goals. Herniated nucleus pulposus, L4-5 left 11/26/2008 documented as of this encounter (statuses as of 12/16/2018) Resolved Problems Problem Noted Date Resolved Date History of total left knee replacement 04/23/2015 08/27/2017 Primary osteoarthritis of left knee 12/31/2014 08/27/2017 Knee pain, bilateral 06/18/2014 08/27/2017 Osteoarthritis of Knee 09/14/2007 08/27/2017 documented as of this encounter (statuses as of 12/16/2018) Immunizations Name Administration Dates Next Due Depo [...] of this encounter Last Filed Vital Signs Not on filedocumented in this encounter Progress Notes Hayden Cason MD - 12/16/2018 1:15 PM EDT PATIENT: Judi Swift : 1950 DATE OF SERVICE: 12/16/2018 PREOPERATIVE DIAGNOSIS: 1. Cyst of scalp measuring 0.5 cm. TITLE OF PROCEDURE: 1. Excision of scalp cyst with dimensions of the excision measuring 0.5 cm. PROCEDURE IN DETAIL: The patient was identified and taken to the procedure room where verbal informed consent was obtained. The cyst was identified and a planned incision was marked. The area was then prepped with alcohol and injected with 1% Lidocaine with epinephrine. When adequate anesthesia was achieved, the cyst located on the left side of the scalp was prepped with Chloraprep and draped in a sterile fashion. A #15 blade scalpel was used to make the incision through the full thickness of the skin to expose the capsule of the cyst. Careful attention was taken to avoid rupturing the cyst during excision. The specimen was then bluntly/sharply excised freeing it from the surrounding subcutaneous structures. The cyst was delivered through the incision intact without rupture of the capsule. The specimen was passed off of the surgical field for transport to pathology. Hemostasis was achieved. A 4- 0 biosyn stitch was used to close and approximate the skin edges. Thewound closed very nicely, and the site was cleaned and dried. A dry dressing was applied. They were advised to avoid any vigorous activity or exercise, so as not to put too much tension on the repair. Post operative instructions were discussed with patient he may removed dressing tomorrow and shower over the incision. She will be notified of pathology as soon as it is available, and they will return in 14 days for wound check. documented in this encounter Plan of Treatment Date Type Specialty Care Team Description 12/30/2018 Office Visit General Surgery Hayden Cason MD [address] [place] [address] [phone] Name Type Priority Associated Diagnoses Date/Time TISSUE EXAM Lab Routine Scalp cyst 12/16/2018 1:15 PM EDT Name Type Priority Associated Diagnoses Order Schedule SACK REPAIRER HELP Procedures Routine Scalp cyst Ordered: 12/16/2018 Health Maintenance Due Date Last Done Comments ZOSTER IMMUNIZATION SERIES 10/05/1999 (1 of 2) MEDICARE ANNUAL WELLNESS 11/18/2016 11/19/2015, 11/19/2015 VISIT COLONOSCOPY SCREENING 04/24/2018 04/24/2013, 03/26/2008, 03/26/2008 DIABETES SCREENING 02/16/2019 02/16/2018, 02/16/2018, 08/27/2017, Additional history exists DEPRESSION SCREENING 10/12/2019 10/11/2018 FALL RISK ASSESSMENT 10/12/2019 10/11/2018, 10/11/2018 LIPID DISORDER SCREENING 01/20/2022 01/20/2017, 01/09/2014, 09/23/2011, Additional history exists OSTEOPOROSIS SCREENING 12/10/2025 12/11/2015 [...] of this encounter Implants Implanted Type Area Certified Lactation Educator Device Shelf Model / Identifier Expiration Date Serial / Lot Bone Cement, 40gm Full Dose - [id number] Left: DEPUY 08/08/2015 [id number] / Implanted: Qty: 1 on 01/07/2015 by Herbert Estrada MD at [facility] Knee / [id number] Gentamicin Bone Cement Left: DEPUY 05/10/2016 / Implanted: Qty: 1 on 01/07/2015 by Herbert Estrada MD at [facility] Knee / [id number] Cruciate Retaining Femoral Left: HIEN, CARLENE. 11/12/2017 [id number] / Implanted: Qty: 1 on 01/07/2015 by Herbert Estrada MD at [facility] Knee / EECAN Primary Tibial Baseplate Left: HIEN, CARLENE. 08/11/2018 [id number] / Implanted: Qty: 1 on 01/07/2015 by Herbert Estrada MD at [facility] Knee / [id number] Symmetric Patella Left: 03/14/2019 [id number]-[id number] / Implanted: Qty: 1 on 01/07/2015 by Herbert Estrada MD at [facility] Knee / AOPR Tibial Bearing Insert-Cs Left: 05/12/2016 [id number] / Implanted: Qty: 1 on 01/07/2015 by Herbert Estrada MD at [facility] Knee / [id number] documented as of this encounter Results Not on filedocumented in this encounter Visit Diagnoses Diagnosis Scalp cyst - Primary Sebaceous cyst documented in this encounter Insurance Payer Benefit Plan / Subscriber ID Effective Dates Phone Address Type Group [facility] xxxxxxxxx 2017-Presen Medicare TODAYS OPTIONS TODAYS OPTIONS t Advantage MEDICAID [facility] xxxxxxxx 2016-Presen Medicaid [place] MEDICAID t (Home) [address] [phone] [place], [place] (Work) [id number] documented as of this encounter
--- OUTSIDE RECORDS SUMMARY | 2019-01-06 13:55 | XMS REPORT | Summary of Care ---
:1950 Author Organization [facility] Address [address] [facility] [place] [address] Care Team Providers Name Role Phone Cherise Swartz MD Primary Care Provider Reason for Visit Reason Comments Surgery Consult NEW, Scalp cyst Refer to Department Only (Routine) Status Reason Specialty Diagnoses / Referred By Referred To Procedures Contact Contact Pending Review GENERAL SURGERY Diagnoses Cherise Sheridan, / General Surgery [address] [place] [address] Encounter Details Date Type Department Care Team Description 11/18/2018 Office Visit [place] Hayden Guerra MD Scalp mass (Primary Surgery 1 [facility] Dx) [address] [facility] [place] [address] [place] [address] Allergies Active Allergy Reactions Severity Noted Date Comments Tegaderm Hives 01/28/2016 documented as of this encounter (statuses as of 11/18/2018) Medications Medication Sig Dispensed Refills Start Date End Date Status Multiple Vitamin Take by 0 Active (MULTI-VITAMINS mouth DAILY. PO) Drummond-3 Fatty Take by 0 Active Acids (FISH OIL mouth DAILY. PO) COMBIGAN 0.2-0.5 0 04/28/2016 Active % Ophthalmic Solution Diphenhydramine- Take by 0 Active APAP, sleep, mouth EVERY (TYLENOL PM BEDTIME. EXTRA STRENGTH) 25-500 MG Oral Tab ibuprofen Take 1 Tab by 100 Tab 1 02/26/2017 Active (MOTRIN) 600 MG mouth EVERY Oral Tab SIX HOURS NEEDED for Pain. tramadol Take 1 Tab by 40 Tab 1 09/08/2017 11/18/2018 Discontinued (ULTRAM) 50 MG mouth EVERY (Error) Oral SIX HOURS TabIndications: NEEDED for Acute midline Pain. Max low back pain Daily Amount: without sciatica 4 Tabs. Omeprazole TAKE 1 90 Cap 1 05/30/2018 11/18/2018 Discontinued delayed rel cap CAPSULE BY (Error) 20 MG Oral MOUTH EVERY CAPSULE DELAYED DAY RELEASE oxybutynin TAKE 1 TABLET 30 Tab 0 11/07/2018 11/18/2018 Discontinued (DITROPAN XL) 10 BY MOUTH (Error) MG Oral TABLET EVERY DAY SR 24 HRIndications: Urinary frequency documented as of this encounter (statuses as of 11/18/2018) Active Problems Problem Noted Date Hyperplastic polyp [...] Meningioma 07/25/2013 Overview: resected and treated at [facility] 2008 BMI 40.0-44.9, adult 09/23/2011 Overview: sustained wt reduction with portion control and sustained routine exercise. Set realistic goal of 1# wt reduction /week set 10 week goals. Herniated nucleus pulposus, L4-5 left 11/26/2008 documented as of this encounter (statuses as of 11/18/2018) Resolved Problems Problem Noted Date Resolved Date History of total left knee replacement 04/23/2015 08/27/2017 Primary osteoarthritis of left knee 12/31/2014 08/27/2017 Knee pain, bilateral 06/18/2014 08/27/2017 Osteoarthritis of Knee 09/14/2007 08/27/2017 documented as of this encounter (statuses as of 11/18/2018) Immunizations Name Administration Dates Next Due Depo [...] Sign Reading Time Taken Comments Blood Pressure - - Pulse 84 11/18/2018 8:48 AM EDT Temperature - - Respiratory Rate 16 11/18/2018 8:48 AM EDT Oxygen Saturation 95% 11/18/2018 8:48 AM EDT Inhaled Oxygen Concentration - - Weight 112.7 kg (248 lb 6.4 oz) 11/18/2018 8:48 AM EDT Height 162.6 cm (5' 4") 11/18/2018 8:48 AM EDT Body Mass Index 42.64 11/18/2018 8:48 AM EDT documented in this encounter Progress Notes Hayden Cason MD - 11/18/2018 8:45 AM EDT Lipoma Consult Office Visit PATIENT: Judi Swift : 1950 DATE OF SERVICE: 11/18/2018 Cherise Swartz MD [address] [place] [address] Cherise Swartz Chief Complaint Patient presents with Surgery Consult NEW, Scalp cyst HISTORY OF PRESENT ILLNESS: Patient presents to the office with a 2 year history of scalp swelling. It has increased in size since initially noticed. It does minimally cause pain and discomfort. Nodrainage noted. Imaging was not performed. A comprehensive review of systems was negative. Past Medical History: Diagnosis Date Meningioma (HCC) 07/25/2013 resected and treated at [facility] 2008 Morbid obesity (HCC) Osteoarthrosis and allied disorders Sciatica Past Surgical History: Procedure Laterality Date SECTION NOS /86 CRANIOTOMY CRANIECTOMY 2008 INCISIONAL HERNIA REPAIR x3 [place] ARTHROTOMY,OPEN REPAIR MENISCUS 2000 left [place] KOHLER W/O FACETEC FORAMOT/[facility] 03/16 VRT SEG, THORACIC 11/2008 Dr. Bee [place] RECONSTRUCT SCAPHOID CARPAL W PROSTHESIS 01/07/15 left knee Social History Socioeconomic History Marital status: Spouse name: Not on file Number of children: Not on file Years of education: Not on file Highest education level: Not on file Occupational History Not on file Social Needs Financial resource strain: Not on file Food insecurity: Worry: Not on file Inability: Not on file Transportation needs: Medical: Not on file Non-medical: Not on file Tobacco Use Smoking status: Never Smoker Smokeless tobacco: Never Used Substance and Sexual Activity Alcohol use: No Drug use: No Sexual activity: Not Currently Lifestyle Physical activity: Days per week: Not on file Minutes per session: Not on file Stress: Not on file Relationships Social connections: Talks on phone: Not on file Gets together: Not on file Attends jain service: Not on file Active member of club or organization: Not on file Attends meetings of clubs or organizations: Not on file Relationship status: Not on file Intimate partner violence: Fear of current or ex partner: Not on file Emotionally abused: Not on file Physically abused: Not on file Forced sexual activity: Not on file Other Topics Concern Back Care Not Asked Bike Helmet Not Asked Blood Transfusions No Caffeine Concern Not Asked Exercise Yes Comment: gym workouts 2-3 times/week Hobby Hazards Not Asked International Travel Not Asked Service Not Asked Occupational Exposure Not Asked Seat Belt Not Asked Self-Exams Not Asked Sleep Concern Not Asked Special Diet Not Asked Stress Concern Not Asked Weight Concern Not Asked Social History Narrative Lives in [place], does not work Lives alone====4 children [facility] Outpatient Medications as of 11/18/2018 Medication Sig Dispense Refill COMBIGAN 0.2-0.5 % Ophthalmic Solution Diphenhydramine-APAP, sleep, (TYLENOL PM EXTRA STRENGTH) 25-500 MG Oral Tab Take by mouth EVERY BEDTIME. ibuprofen (MOTRIN) 600 MG Oral Tab Take 1 Tab by mouth EVERY SIX HOURS NEEDED for Pain. 100 Tab 1 Multiple Vitamin (MULTI-VITAMINS PO) Take by mouth DAILY. Drummond-3 Fatty Acids (FISH OIL PO) Take by mouth DAILY. No current facility-administered medications on file as of 11/18/2018. Allergies Allergen Reactions Tape [Tegaderm] Hives PHYSICAL EXAMINATION: Pulse 84 | Resp 16 | Ht 5' 4" (1.626 m) | Wt 248 lb 6.4 oz (112.7 kg) | SpO2 95% | BMI 42.64 kg/m GENERAL: alert, oriented, no acute distress. SKIN: normal, no rashes or abnormalities noted. HEAD: normocephalic, atraumatic ENT: sclera normal, anicteric, mucous membrane moist NECK: no mass, trachea midline, no thyromegaly. LUNGS: nonlabored breathing, no respiratory distress EXTREMITIES: no clubbing, cyanosis, or edema. NEUROLOGICAL: Normal gait, no focal deficits MUSCULOSKELETAL: Normal range of motion; no joint deformity noted ASSESSMENT: Scalp mass PLAN: Will plan for scalp mass excision at the patient's earliest convenience. Risks and benefits of excision were discussed with the patient including scar formation, wound dehisence, infection and seroma. Will also send for pathology which could lead to the need for additionalintervention. documented in this encounter Plan of Treatment Date Type Specialty Care Team Description 12/02/2018 Office Visit General Surgery Hayedn Cason MD [address] [place] [address] 12/06/2018 Ancillary Procedure Radiology Health Maintenance Due Date Last Done Comments [...] Author Type Problems Progress Depression Depression No Santino screen (PHQ-9) Larisa total score < 5 Note: [...] of this encounter Implants Implanted Type Area Muck Miner Device Shelf Model / Identifier Expiration Date Serial / Lot Bone Cement, 40gm Full Dose - [id number] Left: DEPUY 08/08/2015 [id number] / Implanted: Qty: 1 on 01/07/2015 by Herbert Estrada MD at [facility] Knee / [id number] Gentamicin Bone Cement Left: DEPUY 05/10/2016 / Implanted: Qty: 1 on 01/07/2015 by Herbert Estrada MD at [facility] Knee / [id number] Cruciate Retaining Femoral Left: HIENCORP. 11/12/2017 [id number] / Implanted: Qty: 1 on 01/07/2015 by Herbert Estrada MD at [facility] Knee / EECAN Primary Tibial Baseplate Left: HIEN, CARLENE. 08/11/2018 [id number] / Implanted: Qty: 1 on 01/07/2015 by Herbert Estrada MD at [facility] Knee / [id number] Symmetric Patella Left: 03/14/2019 [id number] / Implanted: Qty: 1 on 01/07/2015 by Herbert Estrada MD at [facility] Knee / AOPR Tibial Bearing Insert-Cs Left: 05/12/2016 [id number] / Implanted: Qty: 1 on 01/07/2015 by Herbert Estrada MD at [facility] Knee / [id number] documented as of this encounter Results Not on filedocumented in this encounter Visit Diagnoses Diagnosis Scalp mass - Primary Localized superficial swelling, mass, or lump documented in this encounter Insurance Payer Benefit Plan / Subscriber ID Effective Dates Phone Address Type Group [facility] xxxxxxxxx 2017-Presen Medicare TODAYS OPTIONS TODAYS OPTIONS t Advantage MEDICAID [facility] xxxxxxxx 2016-Presen Medicaid [place] MEDICAID t (Home[address] [phone] [place], [place] (Work) [address] documented as of this encounter
--- OUTSIDE RECORDS SUMMARY | 2019-01-06 13:55 | XMS REPORT | Continuity of Care Document ---
:1950 External Reference #:[id number] Author Name Linwood Lee M.D. Address [address] [place] [address] Care Team Providers Name Role Phone Cherise Swartz M.D. - Internal Medicine Care Team Information Instruction Assistant Principal [phone] Dhaval Wade M.D. - Care Team Information Instruction Assistant Principal [phone] Ophthalmology Anirudh Xavier M.D. - Care Team Information Instruction Assistant Principal [phone] Ophthalmology Problems Active Problems Provider Date Arthritis Onset: Mild depression Onset: Anxiety Onset: Benign neoplasm of brain Onset: Total replacement of right knee joint Onset: Total replacement of left knee joint Onset: Superficial punctate keratitis Dena Rosado O.D. Onset: 02/12/2017 Tear film insufficiency Dena Rosado O.D. Onset: 02/12/2017 Corneal ectasia Dena Rosado O.D. Onset: 02/12/2017 Primary open angle glaucoma of right eye Dena Rosado O.D. Onset: 03/2016 Steroid-induced glaucoma - borderline Dena Rosado O.D. Onset: 2016 Corneal transplant Dena Rosado O.D. Onset: 02/19/2017 Chronic allergic conjunctivitis [place] Londono O.D. Onset: 07/08/2017 Bilateral primary open angle glaucoma Dhaval Yuen M.D. Onset: 12/12/2018 Social History Type Date Description Comments Sex Unknown ETOH Use Denies alcohol use Tobacco Use Start: Unknown Patient has never smoked Recreational Drug Use Denies Drug Use Smoking Status Reviewed: 01/03/19 Patient has never smoked Allergies, Adverse Reactions, Alerts Description No Known Drug Allergies Medications Active Medications SIG Qnty Indications Ordering Provider Date Fluorometholone 1 drop both 1units Linwood Lee, 01/02/2019 0.1% eyes twice a M.D. Suspension day Refresh Optive 1 drop both Dena J. 07/22/2017 0.5-0.9% eyes four Stockwin, O.D. Solution times a day Combigan 1 drop both 15ml Dhaval Yuen, 0.2-0.5% Solution eye twice M.D. daily Ibuprofen Unknown 600mg Tablets Oxybutynin Chloride ER Crepet, Cheries M.D. 10mg Tablets ER 24HR Olopatadine HCL 1 drop both Unknown 0.2% Solution eyes every day History Medications Prednisolone Acetate 1 drop both eyes 5ml Dhaval Yuen, 12/20/2018 - 1% twice a day M.D. 01/02/2019 Suspension Immunizations Description No Information Available Vital Signs Date Vital Result Comment 08/05/2017 1:04pm BP Systolic 139 mmHg BP Diastolic 80 mmHg Heart Rate 61 /min 02/19/2017 3:06pm BP Systolic 135 mmHg BP Diastolic 77 mmHg Heart Rate 70 /min Respiratory Rate 16 /min Results Description No Information Available Procedures Date Code Description Status 12/12/2018 36382 Est Patient Comprehensive Exam Completed Medical Devices Description No Information Available Encounters Description No Information Available Assessments Date Code Description Provider 01/03/2019 H40.1131 Primary open-angle glaucoma, bilateral, Linwood Lee M.D. mild stage 01/03/2019 Z94.7 Corneal transplant status Linwood Lee M.D. 12/12/2018 H40.1131 Primary open-angle glaucoma, bilateral, Dhaval Yuen M.D. mild stage 12/12/2018 Z94.7 Corneal transplant status Dhaval Yuen M.D. 12/12/2018 H04.123 Dry eye syndrome of bilateral lacrimal Dhaval Yuen M.D. 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 Plan of Treatment 01/03/2019 - Linwood Lee M.D.H40.1131 Primary open-angle glaucoma, bilateral, mild stageComments:Smoking can increase the risk of developing or worsening any eye related disease, as well as affect your overall health. If you are a smoker, we strongly recommend that you quit.If you are not a smoker, we strongly recommend that you do not start. Your glaucoma is stable at this time.Your eye pressure is within an acceptable range, and your testing does not show any further deterioration at this time. Please continue your treatment.Follow up:4 Month Follow Up IOP CHECK WITH DR. YUEN At your next visit, we are not planning to dilate your eyes. However, if you have any changes in your vision or new symptoms, there are certain situations that require us to dilate your eyes. If Dr. Lee requests any additional testing , that may require extra time. If you have any questions before your next appointment, please call our office at .Z94.7 Corneal transplant status Functional Status Description No Information Available Mental Status Description No Information Available Referrals Description No Information Available
--- OUTSIDE RECORDS SUMMARY | 2019-01-06 13:55 | XMS REPORT | Continuity of Care Document ---
:1950 External Reference #:[id number] Author Name Dhaval May M.D. Address [address] [place] [address] Care Team Providers Name Role Phone Cherise Swartz M.D. - Internal Medicine Care Team Information Director Of Development [phone] Dhaval Wade M.D. - Care Team Information Director Of Development [phone] Ophthalmology Problems Active Problems Provider Date Arthritis [...] 07/08/2017 Bilateral primary open angle glaucoma Dhaval May M.D. Onset: 12/12/2018 Social History Type Date Description Comments Sex Unknown ETOH Use Denies alcohol use Tobacco Use Start: Unknown Patient has never smoked Recreational Drug Use Denies Drug Use Smoking Status Reviewed: 12/12/18 Patient has never smoked Allergies, Adverse Reactions, Alerts Description No Known Drug Allergies Medications Active Medications SIG Qnty Indications Ordering Provider Date Refresh Optive 1 drop both Dena J. 07/22/2017 0.5-0.9% eyes four times Stockwin, O.D. Solution a day Combigan 1 drop both eye 15ml Dhaval May, 0.2-0.5% Solution twice daily M.D. Ibuprofen Unknown 600mg Tablets Oxybutynin Chloride ER Crepet, Cherise M.D. 10mg Tablets ER 24HR Fluorometholone 2 times a day 10ml Dhaval May, 0.1% Suspension in both eyes M.D. Olopatadine HCL 1 drop both Unknown 0.2% Solution eyes every day Immunizations Description No Information Available Vital Signs Date Vital Result Comment 08/05/2017 1:04pm BP Systolic 139 mmHg BP Diastolic 80 mmHg Heart Rate 61 /min 02/19/2017 3:06pm BP Systolic 135 mmHg BP Diastolic 77 mmHg Heart Rate 70 /min Respiratory Rate 16 /min Results Description No Information Available Procedures Description No Information Available Medical Devices Description No Information Available Encounters Description No Information Available Assessments Date Code Description Provider 12/12/2018 H40.1131 Primary open-angle glaucoma, bilateral, Dhaval May M.D. mild stage 12/12/2018 Z94.7 Corneal transplant status Dhaval May M.D. 12/12/2018 H04.123 Dry eye syndrome of bilateral lacrimal Dhaval May M.D. 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 Plan of Treatment 12/12/2018 - Dhaval May M.D.H40.1131 Primary open-angle glaucoma, bilateral, mild stageComments:Smoking [...] at this time. Please continue your treatment.Follow up:1 Month Follow Up IOP Check Visual Field, 30-2 OCT ON Pachymetry At your next visit, we are not planning to dilate your eyes. However, if you have any changes in your vision or new symptoms, there are certain situations that require us to dilate your eyes. If Dr. May requests any additional testing, that may require extra time. If you have any questions before your next appointment, please call our office at .[email or web address] Corneal transplant tqniyyP91.123 Dry eye syndrome of bilateral lacrimal [id number] Steroid responder, right eye Functional Status Description No Information Available Mental Status Description No Information Available Referrals Description No Information Available
[2019-01-06 13:59] VITALS: BP 157/73
--- NOTE | 2019-01-06 13:59 | UC ---
Cardiac HPI - HPI Summary HPI Summary: PATIENT COMES INTO THE URGENT CARE STATING "I THINK I'M HAVING A HEART ATTACK " . SHE IS TEARFUL AND ANXIOUS. STATES SHE HAS HAD PAIN IN BETWEEN HER SHOULDER BLADES FOR THE PAST COUPLE OF WEEKS BUT TODAY DEVELOPED LEFT ANTERIOR SHARP CHEST PAIN. SHE REPORTS FEELING SHORT OF BREATH AND HAVING SOME DISCOMFORT DOWN THE LEFT ARM. NO NAUSEA. NO SWEATS. NO PERSONAL OR FAMILY HISTORY OF HEART DISEASE. - History of Current Complaint Stated Complaint: CHEST PAIN Time Seen by Provider: 01/06/19 13:48 Hx Obtained From: Patient Onset/Duration: Sudden Onset, Lasting Hours, Still Present Timing: Constant Initial Severity: Moderate Current Severity: Moderate Pain Intensity: 4 Chest Pain Location: Left Anterior Character: Sharp/Stabbing Aggravating Factor(s): Nothing Alleviating Factor(s): Nothing Associated Signs & Symptoms: Positive: Chest Pain, Anxiety, SOB. Negative: Nausea/Vomiting - Allergy/Home Medications Allergies/Adverse Reactions: Allergies Allergy/AdvReac Type Severity Reaction Status Date / Time Adhesive Tape Allergy REDDENED, Verified 01/06/19 13:59 SKIN IRRITATION latex Allergy burning Verified 01/06/19 13:59 Home Medications: Home Medications Ascorbic Acid [Vitamin C] 1 tab PO DAILY 01/06/19 [History Confirmed 01/06/19] Vitamin A 1 tab PO DAILY 01/06/19 [History Confirmed 01/06/19] Vitamin B Complex [Super B-50 Complex] 1 tab PO DAILY 01/06/19 [History Confirmed 01/06/19] Vitamin E 1 tab PO DAILY 01/06/19 [History Confirmed 01/06/19] prednisoLONE 1% OPHTH.SUSP* [Pred Forte 1%*] 1 drop BOTH EYES DAILY 01/06/19 [ History Confirmed 01/06/19] PMH/Surg Hx/FS Hx/Imm Hx Previously Healthy: Yes - Surgical History Surgical History: Yes Surgery Procedure, Year, and Place: C-SECTIONS X4,HERNIA X3, LT KNEE ARTHROSCOPY ,RT CARPAL TUNNEL 12/15,LASIK 1999(?), CRANIOTOMY 11/20 FOR MENINGIOMA RESECTION - [facility] SURGERY 11-21. 12/2014 - LT KNEE REPLACEMENT - Family History Known Family History: Positive: Hypertension Negative: Cardiac Disease - Social History Alcohol Use: None Substance Use Type: None Smoking Status (MU): Never Smoked Tobacco Have You Smoked in the Last Year: No - Immunization History Most Recent Influenza Vaccination: 2014 Most Recent Tetanus Shot: UNKNOWN Most Recent Pneumonia Vaccination: HAS NOT HAD Review of Systems All Other Systems Reviewed And Are Negative: Yes Constitutional: Positive: Fever Respiratory: Positive: Shortness Of Breath Cardiovascular: Positive: Chest Pain Gastrointestinal: Positive: Negative Musculoskeletal: Positive: Other: - UPPER BACK PAIN Physical Exam Triage Information Reviewed: Yes Appearance: Well-Nourished, Pain Distress - MOD/SEVERE, Obese Vital Signs Reviewed: Yes Eyes: Positive: Conjunctiva Clear ENT: Positive: Hearing grossly normal Neck: Positive: Supple Respiratory: Positive: No respiratory distress, No accessory muscle use Cardiovascular: Positive: RRR Abdomen Description: Positive: Soft Musculoskeletal: Positive: No Edema Neurological: Positive: Alert Psychological: Positive: Age Appropriate Behavior Skin: Negative: Rashes Diagnostics - EKG Cardiac Rate: NL - 64BPM Cardiac Rhythm: Sinus: Normal Ectopy: None ST Segment: Normal - Assessment/Plan Course Of Treatment: PATIENT REQUIRES HIGHER LEVEL OF SERVICE THAN WHAT IS AVAILABLE IN THE URGENT CARE. TO [facility] BY AMBULANCE. - Clinical Impression Provider Diagnosis: Chest pain - Physician Notifications Discussed Patient Care With: Reid Monet - TO [facility] BY AMBULANCE Time Discussed With Above Provider: 13:55 Instructed by Provider To: MD Will See In ED Discharge ED - Sign-Out/Discharge Documenting (check all that apply): Patient Departure All imaging exams completed and their final reports reviewed: No Studies - Discharge Plan Condition: Stable Disposition: TRANS HIGHER LVL OF CARE FAC Referrals: Cherise Swartz MD [Primary Care Provider] - - Billing Disposition and Condition Condition: STABLE Disposition: Trans Higher Lvl of Care Fac
== END 2019-01-06 14:22 | disposition short-term general hospital (02) ==
LOC: UCEAST 13:46
DX: R07.9 Chest pain, unspecified (principal); M54.89 Other dorsalgia; R50.9 Fever, unspecified; Z91.09 Other allergy status, other than to drugs and biological substances; Z91.040 Latex allergy status
CPT/HCPCS: 99213; G0463

== ENCOUNTER 2019-01-06 14:33 | Emergency (ER) | payer MEDICARE, MEDICAID ==
[2019-01-06] MEDS ORDERED: Ketorolac INJ* 30 MG/ML 1 ML VIAL IV PUSH ONE (14:58)
[2019-01-06 14:59] LABS: ABS Eosinophils 0.1 10^3/ul (0-0.6); ABS Monocytes 0.4 10^3/ul (0-0.8); ABS Neutrophils 2.2 10^3/ul (1.5-7.7); Eosinophil % 1.7 %; Hematocrit 42 % (35-47); Lymphocyte % 43.6 %; Mean Corpuscular HGB Conc 34 g/dL (31-36); Mean Corpuscular Hemoglobin 29 pg (27-31); Mean Corpuscular Volume 86 fL (80-97); Mean Platelet Volume 8.3 fL (7.4-10.4); Nucleated Red Blood Cells % 0.1; Platelet Count 205 10^3/uL (150-450); Red Blood Count 4.85 10^6 /uL (3.70-4.87); Red Cell Distribution Width 15 % (10-15); White Blood Count 4.7 10^3/uL (3.5-10.8)
--- NOTE | 2019-01-06 14:59 | ED ---
HPI Chest Pain - HPI Summary HPI Summary: The patient is a 68 y/o F presenting to [facility] accompanied by sister with a chief complaint of sharp left anterior chest pain this afternoon. She reports that over the last three weeks, she has been suffering from interscapular back pain that was present today. She had done some light work at home when she suddenly had sharp left anterior chest pain that is aggravated by movement. Her overall pain is currently rated 8/10 in severity, although she notes that her back pain is worse than the chest pain at this time. She additionally c/o shortness of breath and denies nausea, vomiting, or dizziness. No recent long travel. No cardiac history. FHx: HTN. Nonsmoker, no EtOH, no substance use. Medications reviewed. Allergies noted. - History of Current Complaint Chief Complaint: EDChestPainROMI Time Seen by Provider: 01/06/19 14:41 Hx Obtained From: Patient Onset/Duration: Started Hours Ago, Still Present Timing: Lasting Hours Initial Severity: Severe Current Severity: Moderate Pain Intensity: 8 Pain Scale Used: 0-10 Numeric Chest Pain Location: Left Anterior Chest Pain Radiates: No Character: Sharp/Stabbing Aggravating Factor(s): Movement Alleviating Factor(s): Nothing Associated Signs and Symptoms: Positive: Chest Pain, Shortness of Breath, Back Pain - interscapular. Negative: Dizziness, Nausea, Vomiting - Additional Pertinent History Primary Care Physician: SHAKEEL - Allergy/Home Medications Allergies/Adverse Reactions: Allergies Allergy/AdvReac Type Severity Reaction Status Date / Time Adhesive Tape Allergy REDDENED, Verified 01/06/19 13:59 SKIN IRRITATION latex Allergy burning Verified 01/06/19 13:59 Home Medications: Home Medications Acetaminophen/Diphenhydramine [[facility] Pain Relief Pm Caplet] 1 tab PO BEDTIME 01/06 [History Confirmed 01/06/19] Ascorbic Acid TAB* [Vitamin C TAB*] 1,000 mg PO DAILY 01/06/19 [History Confirmed 01/06/19] Aspirin TAB* [Aspirin 325 MG TAB*] 325 mg PO DAILY 01/06/19 [History Confirmed 01/06/19] Fluorometholone 0.1% OPTH.EMMANUEL* [Fml 0.1% Opth.susp*] 1 drop BOTH EYES BID [History Confirmed 01/06/19] Ibuprofen TAB* [Motrin TAB* 600 MG] 600 mg PO Q6H PRN 01/06/19 [History Confirmed 01/06/19] Vitamin A 8,000 unit PO DAILY 01/06/19 [History Confirmed 01/06/19] Vitamin E CAP* 100 unit PO DAILY 01/06/19 [History Confirmed 01/06/19] PMH/Surg Hx/FS Hx/Imm Hx Endocrine/Hematology History: Denies: Hx Diabetes Cardiovascular History: Denies: Hx Hypercholesterolemia, Hx Hypertension, Hx Pacemaker/ICD Respiratory History: Denies: Hx Chronic Obstructive Pulmonary Disease (COPD) History: Denies: Hx Renal Disease Musculoskeletal History: Reports: Hx Arthritis - KNEES, Hx Tendonitis - RIGHT FOOT, Other Musculoskeletal History - LEFT KNEE/ SWELLING TO BOTH FEET LEFT GREATER THAN RIGHT Sensory History: Reports: Hx Cataracts, Hx Contacts or Glasses - GLASSES Denies: Hx Hearing Aid Opthamlomology History: Reports: Hx Cataracts, Hx Contacts or Glasses - GLASSES Psychiatric History: Denies: Hx Panic Disorder - Cancer History Cancer Type, 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 12/2014 - LT KNEE REPLACEMENT Hx Anesthesia Reactions: No Infectious Disease History: No Infectious Disease History: Denies: Traveled Outside the [place] in Last 30 Days - Family History Known Family History: Positive: Hypertension Negative: Cardiac Disease - Social History Alcohol Use: None Hx Substance Use: No Substance Use Type: Reports: None Hx Tobacco Use: No Smoking Status (MU): Never Smoked Tobacco Have You Smoked in the Last Year: No Review of Systems Positive: Chest Pain - sharp left anterior Positive: Shortness Of Breath Negative: Vomiting, Nausea Positive: Other - pain between shoulders Neurological: Other - Negative: dizziness All Other Systems Reviewed And Are Negative: Yes Physical Exam - Summary Physical Exam Summary: VITAL SIGNS: Reviewed. GENERAL: Patient is a well-developed and nourished female who is lying comfortable in the stretcher. Patient is not in any acute respiratory distress. HEAD AND FACE: No signs of trauma. No ecchymosis, hematomas or skull depressions. No sinus tenderness. EYES: PERRLA, EOMI x 2, No injected conjunctiva, no nystagmus. EARS: Hearing grossly intact. Ear canals and tympanic membranes are within normal limits. MOUTH: Oropharynx within normal limits. NECK: Supple, trachea is midline, no adenopathy, no JVD, no carotid bruit, no c- spine tenderness, neck with full ROM. CHEST: Symmetric, no tenderness at palpation. LUNGS: Clear to auscultation bilaterally. No wheezing or crackles. CVS: Regular rate and rhythm, S1 and S2 present, no murmurs or gallops appreciated. ABDOMEN: Soft, non-tender. No signs of distention. No rebound, no guarding, and no masses palpated. Bowel sounds are normal. EXTREMITIES: FROM in all major joints, no edema, no cyanosis or clubbing. Reproducible paraspinal tenderness in the thoracic spine. NEURO: Alert and oriented x 3. No acute neurological deficits. Speech is normal and follows commands. SKIN: Dry and warm. Triage Information Reviewed: Yes Vital Signs On Initial Exam: Initial Vitals Temp Pulse Resp BP Pulse Ox 98.1 F 54 18 151/67 96 01/06/19 14:38 01/06/19 14:38 01/06/19 14:38 01/06/19 14:38 01/06/19 14:38 Vital Signs Reviewed: Yes Procedures - Sedation Patient Received Moderate/Deep Sedation with Procedure: No Diagnostics - Vital Signs Vital Signs Temp Pulse Resp BP Pulse Ox 01/06/19 14:38 98.1 F 54 18 151/67 96 - Laboratory Result Diagrams: 01/06/19 14:50 01/06/19 14:50 Lab Statement: Any lab studies that have been ordered have been reviewed, and results considered in the medical decision making process. - Radiology Chest X-Ray Radiology Interpretation Completed By: Radiologist Summary of Radiographic Findings: Impression: No evidence for acute intrathoracic disease. ED physician has reviewed this report. Thoracic Spine X-Ray Radiology Interpretation Completed By: Radiologist Summary of Radiographic Findings: Impression: Multilevel degenerative changes of the thoracic spine similar in appearance to the July 01, 2017 CTA of the chest. ED physician has reviewed this report. - EKG 1441 Cardiac Rate: Bradycardia - 51 BPM EKG Rhythm: Sinus Bradycardia EKG Comparison: No Significant Change - Similar to previous on 07/01/17. Summary of EKG Findings: EKG at 1441 reveals sinus bradycardia at [address] elevations. Normal axis. ED physician has reviewed and interpreted this EKG. Re-Evaluation - Re-Evaluation First Eval Re-Evaluation Time: 18:00 Change: Improved Comment: The patient's pain has resovled with medications. We discussed all findings and plan for discharge. Chest Pain Course/Dx - Course Assessment/Plan: Patient is a 68 y/o F accompanied by sister with a chief complaint of sudden onset sharp left anterior chest pain this afternoon with shortness of breath. She has also been suffering from interscapular back pain for the last few weeks that was worse today. No cardiac history. Blood work without any significant abnormality except for glucose of 168, calcium of 10.4, and total protein of 6.3. First troponin is 0.01. EKG shows a normal sinus rhythm without any ST elevation. Chest x-ray impression: No evidence for acute intrathoracic disease. Thoracic Spine x ray IMPRESSION: Multilevel degenerative changes of the thoracic spine similar in appearance to the July 01, 2017 CTA of the chest. Heart to score is equal to 2. Therefore, there is low risk for acute coronary syndrome. Patient is not tachycardic or hypoxic. Wells criteria is equal to 0. Patient was given Toradol for pain in the back, and the symptoms improved. Patient was given 1 dose of [place], and the pain completely subsided. Patient reports that all symptoms have resolved. Because the patient has no significant comorbidities and no family history of cardiovascular disease at her age, the patient will be discharged home with follow up with PCP. I discussed all the findings and test results with the patient. Patient was instructed to return to the emergency room immediately if any of the symptoms return or worsen. Patient understands and agrees. Plan of care was discussed with the patient and patient understands and agrees. All questions were answered at patient satisfaction. There were no further complaints or concerns. PE before discharge: CVS: S1 and S2 present. No murmurs appreciated. Abdominal exam before discharge: Soft, non-tender. No signs of distention. No rebound, no guarding, and no masses palpated. Bowel sounds are normal. Patient is alert and oriented x 3. Patient is hemodynamically stable. - Diagnoses Provider Diagnoses: Atypical chest pain, Back pain Discharge ED - Sign-Out/Discharge Documenting (check all that apply): Patient Departure - Patient will be discharged home. - Discharge Plan Condition: Stable Disposition: HOME Prescriptions: Cyclobenzaprine TAB* [Flexeril 10 MG TAB*] 10 mg PO TID PRN #12 tab PRN Reason: Spasms - Back Patient Education Materials: Chest Pain (DC), Back Pain (ED) Referrals: Cherise Swartz MD [Primary Care Provider] - 3 Days Additional Instructions: Follow up with your primary care provider in 2-3 days. Return to the emergency department for any new or worsening symptoms. - Billing Disposition and Condition Condition: STABLE Disposition: Home - Attestation Statements Document Initiated by Dev: Yes Documenting Scribe: Gaye Robins Provider For Whom Dev is Documenting (Include Credential): Dr. Reid Monet MD Scribe Attestation: Gaye Greer scribed for Dr. Reid Monet MD on 01/06/19 at 1859. Scribe Documentation Reviewed: Yes Provider Attestation: The documentation as recorded by the Gaye stanley accurately reflects the service I personally performed and the decisions made by me, Dr. Reid Monet MD Status of Scrchika Document: Viewed
[2019-01-06 15:16] LABS: Albumin 3.6 g/dL (3.2-5.2); Albumin/Globulin Ratio 1.3 (1-3); BUN/Creatinine Ratio 20.3 (8-20); Calcium 10.4 mg/dL (8.6-10.3); EGFR African American 94.2 (>60); EGFR Non-African American 77.8 (>60); Globulin 2.7 g/dL (2-4); Potassium 4.1 mmol/L (3.5-5.0); Total Bilirubin 0.4 mg/dL (0.2-1.0); Total Protein 6.3 g/dL (6.4-8.9)
[2019-01-06 15:18] LABS: Troponin I 0.01 ng/mL (<0.04)
[2019-01-06 15:20] LABS: CKMB ng/mL 1.5 ng/mL (0.6-6.3)
[2019-01-06 15:40] LABS: TSH (Thyroid Stimulating Horm) 1.05 mcIU/mL (0.34-5.60)
[2019-01-06] MEDS ORDERED: HYDROcodone/ACETAMIN 5-325 MG* 1 TAB PO ONE (17:10)
[2019-01-06 18:06] VITALS: BP 137/66
== END 2019-01-06 17:56 | disposition home or self-care (01) ==
LOC: ED 14:33
DX: R07.89 Other chest pain (principal); M54.9 Dorsalgia, unspecified; Z96.652 Presence of left artificial knee joint; Z79.899 Other long term (current) drug therapy; Z91.040 Latex allergy status; M51.34 Other intervertebral disc degeneration, thoracic region
CPT/HCPCS: 36415; 71045; 72070; 80053; 82550; 82553; 83605; 83735; 83880; 84443; 84484; 85025; 93005; 96374; 99283; J1885